=== PATIENT | male | born 1940 | race Caucasian/White ===

== ENCOUNTER 2017-04-24 13:59 | Emergency (ER) | payer MEDICARE, OTHER ==
[2017-04-24 14:03] VITALS: BP 150/84
--- NOTE | 2017-04-24 14:14 | EDM.PDOC ---
ED HPI GENERAL MEDICAL PROBLEM - General Chief Complaint: General Stated Complaint: "harder to breath with having recent blood clots" Time Seen by Provider: 04/24/17 14:01 Source of Information: Reports: Patient History Limitations: Reports: No Limitations - History of Present Illness INITIAL COMMENTS - FREE TEXT/NARRATIVE: This patient is a 76 year old male that presents to the ER. Patient reports that this morning he was sitting on the couch and started having right sided chest pain with shortness of breath. He reports that taking big deep breaths does make the pain worse. The patient reports that he was diagnosed recently with a blood clot to the E, and has been taking aspirin for this. Patient reports that since being here in the ER that his dyspnea has improved some. Patient denies avalos, dizziness, n, v, d, f, cough, congestion, drainage, abd pain , urinary/bowel changes, back pain, palpitations, injury. Patent is fully alert and oriented, he is conversing in full and complete sentences without any difficulty. Patient has equal chest rise. No flail chest, no splinting. Onset: Today Onset Date: 04/24/17 Onset Time: 10:30 Duration: Improving Location: Reports: Chest Front/Back Body Image: 1 - pain. Quality: Reports: Ache Severity: Mild Improves with: Reports: None Worsens with: Reports: Breathing Associated Symptoms: Reports: Chest Pain, Shortness of Breath. Denies: Confusion, Cough, Diaphoresis, Fever/Chills, Headaches, Loss of Appetite, Nausea /Vomiting, Rash, Seizure, Syncope, Weakness Right Chest Pain Score (Numeric/FACES): 4 - Related Data Allergies Allergy/AdvReac Type Severity Reaction Status Date / Time No Known Allergies Allergy Verified 04/24/17 14:30 Home Meds: Home Meds Finasteride [Finasteride] 5 mg PO BEDTIME 05/24/15 [History] Multivitamin [Multivitamins] 1 each PO DAILY 05/24/15 [History] Omeprazole [Omeprazole] 20 mg PO BEDTIME 05/24/15 [History] Simvastatin [Simvastatin] 10 mg PO BEDTIME 05/24/15 [History] Tamsulosin [Flomax] 0.4 mg PO BID 05/24/15 [History] Travoprost [Travatan Z 0.004% Ophth Soln] 1 drop EYEBOTH BEDTIME 01/01/16 [ History] Aspirin [Ecotrin] 325 mg PO BEDTIME 04/24/17 [History] Metoprolol Succinate [Toprol XL] 25 mg PO DAILY 04/24/17 [History] Timolol Maleate [Timoptic 0.25% Ophth Soln] 1 drop EYEBOTH BID 04/24/17 [History ] amLODIPine [Norvasc] 5 mg PO DAILY 04/24/17 [History] Past Medical History Other Genitourinary History: BPH Other Neuro History: FELL ON THE ICE SEVERAL YEARS AGO AND SUSTAINED A HEAD INJURY; WAS MONITORED OVERNIGHT. NO BLEED - Past Surgical History Other Cardiovascular Surgeries/Procedures: STENT PUT IN ABOUT 10 YEARS AGO Social & Family History - Tobacco Use Smoking Status *Q: Never Smoker ED ROS GENERAL - Review of Systems Review Of Systems: See Below Constitutional: Reports: No Symptoms HEENT: Reports: No Symptoms Respiratory: Reports: Shortness of Breath Cardiovascular: Reports: Chest Pain, Dyspnea on Exertion Endocrine: Reports: No Symptoms GI/Abdominal: Reports: No Symptoms : Reports: No Symptoms Musculoskeletal: Reports: No Symptoms Skin: Reports: No Symptoms Neurological: Reports: No Symptoms Psychiatric: Reports: No Symptoms Hematologic/Lymphatic: Reports: No Symptoms Immunologic: Reports: No Symptoms ED EXAM, GENERAL - Physical Exam Exam: See Below Exam Limited By: No Limitations General Appearance: Alert, WD/WN, No Apparent Distress Eye Exam: Bilateral Eye: Normal Inspection, PERRL Ears: Normal External Exam, Normal Canal, Hearing Grossly Normal, Normal TMs, Other (hearing aids removed for exam. Patient reinserted. ) Ear Exam: Bilateral Ear: Auricle Normal, Canal Normal, TM normal Nose: Normal Inspection, Normal Mucosa, No Blood Throat/Mouth: Normal Inspection, Normal Lips, Normal Teeth, Normal Gums, Normal Oropharynx, Normal Voice, No Airway Compromise Head: Atraumatic, Normocephalic Neck: Normal Inspection, Supple, Non-Tender, Full Range of Motion Respiratory/Chest: No Respiratory Distress, Lungs Clear, Normal Breath Sounds, No Accessory Muscle Use, Chest Non-Tender. No: Respiratory Distress, Decreased Breath Sounds, Crackles, Rales, Rhonchi, Wheezing, Stridor, Pleural Rub, Accessory Muscle Use, Retractions, Splinting, Prolonged Expiration Cardiovascular: Normal Peripheral Pulses, Regular Rate, Rhythm, No Edema, No Gallop, No JVD, No Murmur, No Rub Peripheral Pulses: 2+: Radial (L), Radial (R), Posterior Tibial (L), Posterior Tibial (R) GI/Abdominal: Soft, Non-Tender Back Exam: Normal Inspection, Full Range of Motion. No: CVA Tenderness (L), CVA Tenderness (R) Extremities: Normal Inspection, Normal Range of Motion, Non-Tender, No Pedal Edema, Normal Capillary Refill Neurological: Alert, Oriented, Normal Cognition, Normal Gait, No Motor/Sensory Deficits Psychiatric: Normal Affect, Normal Mood Skin Exam: Warm, Dry, Intact, Normal Color, No Rash Lymphatic: No Adenopathy EKG INTERPRETATION EKG Date: 04/24/17 Time: 14:12 Rhythm: NSR Rate (Beats/Min): 64 ST-T: Normal Comparison: NA - No Prior EKG Course - Vital Signs Last Recorded V/S: Last Vital Signs Temp 99.4 F 04/24/17 14:00 Pulse 75 04/24/17 14:00 Resp 16 04/24/17 14:00 BP 150/84 H 04/24/17 14:00 Pulse Ox 94 L 04/24/17 14:00 - Orders/Labs/Meds Orders: Active Orders 24 hr Category Date Time Status Ang Chest [CT] Stat Exams 04/24/17 14:37 Taken Chest 2V [CR] Stat Exams 04/24/17 14:05 Taken Sodium Chloride 0.9% [Normal Saline] 500 ml Med 04/24/17 14:45 Active IV .BOLUS Medication Orders Sodium Chloride (Normal Saline) 500 mls @ 500 mls/hr IV .BOLUS ALHAJI Last Infusion: 04/24/17 16:21 Dose: 999 mls/hr Admin: 04/24/17 16:20 Dose: 500 mls/hr Labs: Laboratory Tests 04/24/17 04/24/17 04/24/17 Range/Units 14:10 14:10 14:10 WBC 7.8 (5.0-10.0) 10^3/uL RBC 4.64 (4.50-6.00) 10^6/uL Hgb 14.5 (14.0-18.0) g/dL Hct 43.5 (40.0-54.0) % MCV 93.8 (82.0-94.0) fL MCH 31.3 (27.0-32.0) pg MCHC 33.3 (33.0-38.0) g/dL RDW Coeff of Fiona 12.5 (11.0-15.0) % Plt Count 180 (150-400) 10^3/uL Neut % (Auto) 70.5 (35-85) % Lymph % (Auto) 15.2 (10-55) % Worth % (Auto) 11.2 (0-16) % Eos % (Auto) 2.6 (0-5) % Baso % (Auto) 0.5 (0-3) % Neut # (Auto) 5.46 (1.80-7.00) 10^3/uL Lymph # (Auto) 1.18 (1.00-4.80) 10^3/uL Worth # (Auto) 0.87 H (0.00-0.80) 10^3/uL Eos # (Auto) 0.20 (0.00-0.45) 10^3/uL Baso # (Auto) 0.04 10^3/uL PT 10.7 (9.7-12.3) SEC INR 0.99 (0.92-1.18) APTT 27.5 (24.5-30.9) SEC Sodium 142 (136-145) mEq/L Potassium 4.8 (3.5-5.0) mEq/L Chloride 106 (98-106) mEq/L Carbon Dioxide 31 (21-32) mmol/L BUN 20 H (7-18) mg/dL Creatinine 1.0 (0.7-1.3) mg/dL Est Cr Clr Drug Dosing 67.90 mL/min Estimated GFR (MDRD) > 60 (>=60) mL/min Glucose 106 H (75-99) mg/dL Calcium 8.6 (8.4-10.1) mg/dL Total Bilirubin 0.4 (0.0-1.0) mg/dL AST 22 (15-37) U/L ALT 18 (12-78) U/L Alkaline Phosphatase 115 (46-116) U/L Troponin I < 0.017 (0.00-0.06) ng/mL C-Reactive Protein 1.1 H (0.2-0.8) mg/dL Total Protein 7.0 (6.4-8.2) g/dL Albumin 3.5 (3.4-5.0) g/dL Meds: Medications Generic Name Dose Route Start Last Admin Trade Name Freq PRN Reason Stop Dose Admin Sodium Chloride 500 mls @ 500 mls/hr 04/24/17 14:45 04/24/17 16:21 Normal Saline IV 999 mls/hr .BOLUS ALHAJI Infusion Discontinued Medications Generic Name Dose Route Start Last Admin Trade Name Freq PRN Reason Stop Dose Admin Enoxaparin Sodium 155 mg 04/24/17 16:13 04/24/17 16:30 Lovenox SUBCUT 04/24/17 16:14 155 mg NOW STA Administration Iopamidol 100 ml 04/24/17 14:46 04/24/17 15:28 [id number] (76%) IVPUSH 04/24/17 14:47 100 ml ONETIME ONE Administration - Radiology Interpretation Free Text/Narrative:: CT Angio Chest: Discussed with radiologist: Several bilateral PEs, some appears chronic, subactue, acute. RLL PE with pulmonary infarct verses hemorrhage. CT Results Date: 04/24/17 CT Results Time: 15:50 - Re-Assessments/Exams Free Text/Narrative Re-Assessment/Exam: 04/24/17 16:20 I discussed this patient and results with Dr. Pereira the hospitalist at [facility]. The patient oxygen saturation on RA is 94%, vitals stable. Patient does not appear in acute distress. Dr. Pereira reports that this patient can go home outpatient treatment. He reports to give the patient 1.5mg/kg of Lovenox injection, then prescribe Eliquis. He reports to have the patient return if increase in pain, increase in dyspnea, or oxygen saturation drop. I have educated the patient about his test, condition, discussion with hospitalist, and plan. He agrees with this plan. I have educated the patient on the dangers of Eliquis and Lovenox. He understands all the risks. He understands when to return to the ER for bleeding risks as well. Departure - Departure Time of Disposition: 16:23 Disposition: Home, Self-Care 01 Condition: Fair Clinical Impression: PE, Pulmonary embolism - Discharge Information Instructions: Pulmonary Embolism Referrals: Derrick Patterson MD [Primary Care Provider] - Forms: ED Department Discharge Additional Instructions: Followup with your primary care provider in 1-2 days Return to the ER for worsening of condition or any emergent concerns such as increase in shortness of breath, increase in chest pain, or any other concerns. Return to the ER for bleeding as well such as blood in bowels, vomiting blood. No physical activity or contact activity: You are at bleeding risk. Eliquis 5mg 2 pills twice a day for 7 days, then 1 pill twice a day continued # 70 no refill - My Orders Last 24 Hours: My Active Orders 04/24/17 14:05 Chest 2V [CR] Stat 04/24/17 14:37 Ang Chest [CT] Stat 04/24/17 14:45 Sodium Chloride 0.9% [Normal Saline] 500 ml IV .BOLUS - Assessment/Plan Last 24 Hours: My Active Orders 04/24/17 14:05 Chest 2V [CR] Stat 04/24/17 14:37 Ang Chest [CT] Stat 04/24/17 14:45 Sodium Chloride 0.9% [Normal Saline] 500 ml IV .BOLUS Plan: PLEASE SEE RN NOTE FOR PFSH.
[2017-04-24 14:30] LABS: CHLORIDE,CL 106 mEq/L (98-106); SODIUM,NA 142 mEq/L (136-145)
[2017-04-24] MEDS ORDERED: Sodium Chloride 0.9% 500 ML IV SCH (14:45)
[2017-04-24] MEDS ORDERED: Iopamidol 755 Mg/ML 100 ML Bottle IVPUSH ONE (14:46)
[2017-04-24] MEDS ORDERED: Enoxaparin 100 MG/1 ML Syringe SUBCUT STA (16:13)
[2017-04-25] MEDS ORDERED: Non-Formulary Medication 1 Each (Amlodipine [Norvasc] 5 MG) PO SCH (08:15)
[2017-04-25] MEDS ORDERED: Metoprolol Succinate 25 MG Tab.ER PO SCH (08:15)
[2017-04-25] MEDS ORDERED: Tamsulosin 0.4 MG Cap.ER PO SCH (08:15)
[2017-04-25] MEDS ORDERED: TIMOLOL MALEATE EYEBOTH SCH (08:15)
[2017-04-25] MEDS ORDERED: Enoxaparin 100 MG/1 ML Syringe SUBCUT ONE (08:20)
[2017-04-25] MEDS ORDERED: Aspirin 325 MG Tab.EC PO SCH (20:00)
[2017-04-25] MEDS ORDERED: Non-Formulary Medication 1 Each (Travoprost [Travatan Z 0.004% Ophth Soln] 1 DROP) EYEBOTH SCH (20:00)
[2017-04-25] MEDS ORDERED: Finasteride 5 MG Tab PO SCH (20:00)
[2017-04-25] MEDS ORDERED: Simvastatin 10 MG Tab PO SCH (20:00)
[2017-04-25] MEDS ORDERED: Non-Formulary Medication 1 Each (Omeprazole [Omeprazole] 20 MG) PO SCH (20:00)
== END 2017-04-24 16:55 | disposition home or self-care (01) ==
LOC: CC.ED 13:59
DX: I26.99 Other pulmonary embolism without acute cor pulmonale (principal); Z79.899 Other long term (current) drug therapy; Z79.82 Long term (current) use of aspirin; Z95.5 Presence of coronary angioplasty implant and graft
CPT/HCPCS: 36415; 71020; 71275; 80053; 84484; 85025; 85610; 85730; 86140; 93005; 93010; 96360; 96372; 99284; 99285; J1650; J7040; Q9967; 96365

== ENCOUNTER 2017-04-25 03:30 | Inpatient (IN) | payer MEDICARE, OTHER ==
--- NOTE | 2017-04-25 04:35 | EDM.PDOC ---
ED HPI GENERAL MEDICAL PROBLEM - General Chief Complaint: General Stated Complaint: pain with breating d/t blood clots Time Seen by Provider: 04/25/17 04:05 Source of Information: Reports: Patient, Family History Limitations: Reports: No Limitations - History of Present Illness INITIAL COMMENTS - FREE TEXT/NARRATIVE: This patient is a 76 year old male that presents to the ER via EMS. The patient was seen in the ER yesterday and diagnosed with several PEs. The patient was discharged hemodynamically stable. The patient reports that he got home and his daughter was with him. The patient reports that he continues to have pain with inspiration of the right anterior chest. The patient reports that his daughter was worried, so she encouraged him to call and ambulance to return for admission. The patient reports that he is having the same amount of pain to the right chest with inspiration as yesterday, he feels the same shortness of breath. He denies avalos, dizziness, n, v, d, f, abd pain, urinary/bowel changes. Onset Date: 04/24/17 Onset Time: 10:30 Location: Reports: Chest Quality: Reports: Ache Severity: Mild Improves with: Reports: None Worsens with: Reports: Breathing (Inspiration) Associated Symptoms: Reports: Chest Pain, Shortness of Breath. Denies: Confusion, Cough, cough w sputum, Diaphoresis, Fever/Chills, Headaches, Loss of Appetite, Malaise, Nausea/Vomiting, Rash, Seizure, Syncope, Weakness Treatments BUDGET DIRECTOR: Reports: EKG Right Lower Chest Pain Score (Numeric/FACES): 4 - Related Data Allergies Allergy/AdvReac Type Severity Reaction Status Date / Time No Known Allergies Allergy Verified 04/25/17 03:49 Home Meds: Home Meds Finasteride [Finasteride] 5 mg PO BEDTIME 05/24/15 [History] Multivitamin [Multivitamins] 1 each PO DAILY 05/24/15 [History] Omeprazole [Omeprazole] 20 mg PO BEDTIME 05/24/15 [History] Simvastatin [Simvastatin] 10 mg PO BEDTIME 05/24/15 [History] Tamsulosin [Flomax] 0.4 mg PO BID 05/24/15 [History] Travoprost [Travatan Z 0.004% Ophth Soln] 1 drop EYEBOTH BEDTIME 01/01/16 [ History] Aspirin [Ecotrin] 325 mg PO BEDTIME 04/24/17 [History] Metoprolol Succinate [Toprol XL] 25 mg PO DAILY 04/24/17 [History] Timolol Maleate [Timoptic 0.25% Ophth Soln] 1 drop EYEBOTH BID 04/24/17 [History ] amLODIPine [Norvasc] 5 mg PO DAILY 04/24/17 [History] Past Medical History HEENT History: Reports: Glaucoma Cardiovascular History: Reports: Blood Clots/VTE/DVT, Hypertension, Stents Genitourinary History: Reports: BPH, UTI, Recurrent Other Genitourinary History: BPH Musculoskeletal History: Reports: Fracture Neurological History: Reports: Other (See Below) Other Neuro History: FELL ON THE ICE SEVERAL YEARS AGO AND SUSTAINED A HEAD INJURY; WAS MONITORED OVERNIGHT. NO BLEED Dermatologic History: Reports: Benign Melanoma - Past Surgical History Other Cardiovascular Surgeries/Procedures: STENT PUT IN ABOUT 10 YEARS AGO GI Surgical History: Reports: Appendectomy, Cholecystectomy, Colonoscopy Social & Family History - Family History Family Medical History: Noncontributory - Tobacco Use Smoking Status *Q: Never Smoker Used Tobacco, but Quit: Yes Month Tobacco Last Used: 50yrs ago - Caffeine Use Caffeine Use: Reports: None - Recreational Drug Use Recreational Drug Use: No ED ROS GENERAL - Review of Systems Review Of Systems: See Below Constitutional: Reports: No Symptoms HEENT: Reports: No Symptoms Respiratory: Reports: Shortness of Breath, Pleuritic Chest Pain (Right anterior chest). Denies: Wheezing, Cough, Sputum Cardiovascular: Reports: No Symptoms Endocrine: Reports: No Symptoms GI/Abdominal: Reports: No Symptoms : Reports: No Symptoms Musculoskeletal: Reports: No Symptoms Skin: Reports: No Symptoms Neurological: Reports: No Symptoms Psychiatric: Reports: No Symptoms Hematologic/Lymphatic: Reports: No Symptoms Immunologic: Reports: No Symptoms ED EXAM, GENERAL - Physical Exam Exam: See Below Exam Limited By: No Limitations General Appearance: Alert, WD/WN, No Apparent Distress Eye Exam: Bilateral Eye: Normal Inspection, PERRL Ears: Normal External Exam, Normal Canal, Hearing Grossly Normal, Normal TMs Ear Exam: Bilateral Ear: Auricle Normal, Canal Normal, TM normal Nose: Normal Inspection, Normal Mucosa, No Blood Throat/Mouth: Normal Inspection, Normal Lips, Normal Teeth, Normal Gums, Normal Oropharynx, Normal Voice, No Airway Compromise Head: Atraumatic, Normocephalic Neck: Normal Inspection, Supple, Non-Tender, Full Range of Motion Respiratory/Chest: No Respiratory Distress, Lungs Clear, Normal Breath Sounds, No Accessory Muscle Use, Chest Non-Tender. No: Respiratory Distress, Decreased Breath Sounds, Crackles, Rales, Rhonchi, Wheezing, Stridor, Pleural Rub, Accessory Muscle Use, Retractions, Splinting, Prolonged Expiration Cardiovascular: Normal Peripheral Pulses, Regular Rate, Rhythm, No Edema, No Gallop, No JVD, No Murmur, No Rub Peripheral Pulses: 2+: Radial (L), Radial (R), Posterior Tibial (L), Posterior Tibial (R), Dorsalis Pedis (L), Dorsalis Pedis (R) GI/Abdominal: Soft, Non-Tender Back Exam: Normal Inspection, Full Range of Motion Extremities: Normal Inspection, Normal Range of Motion, Non-Tender, No Pedal Edema, Normal Capillary Refill Neurological: Alert, Oriented, Normal Cognition, No Motor/Sensory Deficits Psychiatric: Normal Affect, Normal Mood Skin Exam: Warm, Dry, Intact, Normal Color, No Rash Lymphatic: No Adenopathy Course - Vital Signs Last Recorded V/S: Last Vital Signs Temp 99.6 F 04/25/17 04:47 Pulse 70 04/25/17 04:47 Resp 16 04/25/17 04:47 BP 156/94 H 04/25/17 04:47 Pulse Ox 94 L 04/25/17 04:47 - Re-Assessments/Exams Free Text/Narrative Re-Assessment/Exam: 04/25/17 04:51 The patient oxygen saturation is 96% on RA. The patient does not appear in any acute distress. I have spent over 20 minutes with this patient and his daughter at bedside discussing and educating the diagnosis, treatment, risks vs benefits of admission, risks vs benefits of different medication treatments. The recommended treatment for this patient I initially prescribed was Lovenox and Eliquis at previous discharge from ER. I have explained risks and benefits of Warfarin verses Eliquis with this patient and daughter. The daughter reports she would like the patient to have Eliquis. I have educated that I currently do not have Eliquis available, but he did get 1.5mg/kg Lovenox injection on . The patient and daughter have requested admission. I will honor this request. The patient PCP will see this patient this morning and will again discuss with the patient and daughter available options. I did explain to the daughter they can discuss possible options for blood thinner. So, at this time I will not order this. Departure - Departure Time of Disposition: 04:34 Disposition: Admitted As Inpatient 65 Condition: Fair Clinical Impression: PE, Pulmonary embolism Dyspnea Qualifiers: Dyspnea type: shortness of breath Qualified Code(s): R06.02 - Shortness of breath Chest pain Qualifiers: Chest pain type: chest pain on breathing Qualified Code(s): R07.1 - Chest pain on breathing - Discharge Information - Assessment/Plan Plan: PLEASE SEE RN NOTE FOR PFSH. PLEASE USE ER H&P ADMIT H&P.
[2017-04-25] MEDS ORDERED: Enoxaparin 40 MG/0.4 ML Syringe SUBCUT SCH ×2 (05:08→16:00)
[2017-04-25] MEDS ORDERED: Ondansetron 4 MG/2 ML SDV IV PRN (05:08)
[2017-04-25] MEDS ORDERED: Acetaminophen 325 MG Tab PO PRN (05:08)
[2017-04-25] MEDS ORDERED: Sodium Chloride 0.9% 10 ML Syringe FLUSH PRN (05:08)
[2017-04-25] MEDS: Acetaminophen/HYDROcodone 325-5 MG Tab PO PRN ×2 (05:51→14:43)
[2017-04-25] MEDS: Metoprolol Succinate 25 MG Tab.ER PO SCH (07:29)
[2017-04-25] MEDS: amLODIPine 2.5 MG Tab PO SCH (07:29)
[2017-04-25] MEDS: Tamsulosin 0.4 MG Cap.ER PO SCH ×2 (07:30→19:54)
[2017-04-25 07:35] LABS: CHLORIDE,CL 105 mEq/L (98-106); SODIUM,NA 141 mEq/L (136-145)
[2017-04-25] MEDS: TIMOLOL MALEATE EYEBOTH SCH ×2 (08:42→19:47)
[2017-04-25] MEDS: Enoxaparin 100 MG/1 ML Syringe SUBCUT SCH ×2 (08:42→19:52)
[2017-04-25] MEDS: Morphine 2 MG/ML Syringe IVPUSH PRN ×2 (09:07→12:53)
[2017-04-25] MEDS: Ibuprofen 200 MG Tab PO PRN (12:52)
[2017-04-25] MEDS: Simvastatin 10 MG Tab PO SCH (19:53)
[2017-04-25] MEDS: Pantoprazole 40 MG Tab.CR PO SCH (19:53)
[2017-04-25] MEDS: Finasteride 5 MG Tab PO SCH (19:54)
[2017-04-25] MEDS: Latanoprost 0.005% Ophth Soln 2.5 ML Bottle EYEBOTH SCH (19:56)
--- NOTE | 2017-04-25 20:07 | PCM.PN ---
- General Info Date of Service: 04/25/17 Admission Dx/Problem (Free Text): Pulmonary Emboli Functional Status: Reports: tolerating diet, ambulating. Denies: pain controlled - Review of Systems General: Denies: Fever, Weakness, Fatigue HEENT: Reports: no symptoms Pulmonary: Reports: pleuritic chest pain. Denies: cough, hemoptysis Cardiovascular: Denies: Chest Pain, Edema, Lightheadedness Gastrointestinal: Reports: No symptoms Genitourinary: Reports: no symptoms Musculoskeletal: Reports: no symptoms Skin: Reports: no symptoms Neurological: Reports: No Symptoms - Patient Data Vitals - most recent: Last Vital Signs Temp 99.8 F 04/25/17 16:00 Pulse 71 04/25/17 16:00 Resp 24 H 04/25/17 16:00 BP 141/79 H 04/25/17 16:00 Pulse Ox 93 L 04/25/17 16:00 Weight - most recent: 218 lb 9.6 oz Lab Results last 24 hrs: Laboratory Results - last 24 hr 04/25/17 04/25/17 04/25/17 Range/Units 07:21 07:21 07:21 WBC 7.7 (5.0-10.0) 10^3/uL RBC 4.44 L (4.50-6.00) 10^6/uL Hgb 13.8 L (14.0-18.0) g/dL Hct 41.5 (40.0-54.0) % MCV 93.5 (82.0-94.0) fL MCH 31.1 (27.0-32.0) pg MCHC 33.3 (33.0-38.0) g/dL RDW Coeff of Fiona 12.3 (11.0-15.0) % Plt Count 170 (150-400) 10^3/uL Neut % (Auto) 72.4 (35-85) % Lymph % (Auto) 15.0 (10-55) % Donley % (Auto) 11.2 (0-16) % Eos % (Auto) 1.0 (0-5) % Baso % (Auto) 0.4 (0-3) % Neut # (Auto) 5.55 (1.80-7.00) 10^3/uL Lymph # (Auto) 1.15 (1.00-4.80) 10^3/uL Donley # (Auto) 0.86 H (0.00-0.80) 10^3/uL Eos # (Auto) 0.08 (0.00-0.45) 10^3/uL Baso # (Auto) 0.03 10^3/uL PT 11.4 (9.7-12.3) SEC INR 1.05 (0.92-1.18) Sodium 141 (136-145) mEq/L Potassium 4.0 (3.5-5.0) mEq/L Chloride 105 (98-106) mEq/L Carbon Dioxide 27 (21-32) mmol/L BUN 16 (7-18) mg/dL Creatinine 0.8 (0.7-1.3) mg/dL Est Cr Clr Drug Dosing 84.88 mL/min Estimated GFR (MDRD) > 60 (>=60) mL/min Glucose 92 (75-99) mg/dL Calcium 8.3 L (8.4-10.1) mg/dL C-Reactive Protein 2.9 H (0.2-0.8) mg/dL [id number] Pept (0-1000) pg/nL 04/25/17 Range/Units 08:30 WBC (5.0-10.0) 10^3/uL RBC (4.50-6.00) 10^6/uL Hgb (14.0-18.0) g/dL Hct (40.0-54.0) % MCV (82.0-94.0) fL MCH (27.0-32.0) pg MCHC (33.0-38.0) g/dL RDW Coeff of Fiona (11.0-15.0) % Plt Count (150-400) 10^3/uL Neut % (Auto) (35-85) % Lymph % (Auto) (10-55) % Donley % (Auto) (0-16) % Eos % (Auto) (0-5) % Baso % (Auto) (0-3) % Neut # (Auto) (1.80-7.00) 10^3/uL Lymph # (Auto) (1.00-4.80) 10^3/uL Donley # (Auto) (0.00-0.80) 10^3/uL Eos # (Auto) (0.00-0.45) 10^3/uL Baso # (Auto) 10^3/uL PT (9.7-12.3) SEC INR (0.92-1.18) Sodium (136-145) mEq/L Potassium (3.5-5.0) mEq/L Chloride (98-106) mEq/L Carbon Dioxide (21-32) mmol/L BUN (7-18) mg/dL Creatinine (0.7-1.3) mg/dL Est Cr Clr Drug Dosing mL/min Estimated GFR (MDRD) (>=60) mL/min Glucose (75-99) mg/dL Calcium (8.4-10.1) mg/dL C-Reactive Protein (0.2-0.8) mg/dL [id number] Pept 286 (0-1000) pg/nL Med Orders - Current: Current Medications Acetaminophen (Tylenol) 650 mg PO Q4H PRN PRN Reason: Pain (Mild 1-3)/fever Hydrocodone Bitart/Acetaminophen ([place] 325-5 Mg) 2 tab PO Q4H PRN PRN Reason: Pain (moderate 4-6) Last Admin: 04/25/17 14:43 Dose: 2 tab Amlodipine Besylate (Norvasc) 5 mg PO DAILY [facility] Last Admin: 04/25/17 07:29 Dose: 5 mg Enoxaparin Sodium (Lovenox) 100 mg SUBCUT Q12H [facility] Last Admin: 04/25/17 08:42 Dose: 100 mg Finasteride (Proscar) 5 mg PO BEDTIME [facility] Ibuprofen (Motrin) 600 mg PO Q6H PRN PRN Reason: Pain (mild 1-3) Last Admin: 04/25/17 12:52 Dose: 600 mg Latanoprost (Xalatan 0.005% Ophth Soln) 0 ml EYEBOTH BEDTIME [facility] Metoprolol Succinate (Toprol Xl) 25 mg PO DAILY [facility] Last Admin: 04/25/17 07:29 Dose: 25 mg Morphine Sulfate (Morphine) 2 mg IVPUSH Q2H PRN PRN Reason: Pain (severe 7-10) Last Admin: 04/25/17 12:53 Dose: 2 mg Ptom (Timolol Maleate [Timoptic 0. 25% Ophth Soln] 1 Drop) 1 drop EYEBOTH BID [facility] Last Admin: 04/25/17 19:47 Dose: 1 drop Ondansetron HCl (Zofran) 4 mg IV Q6H PRN PRN Reason: Nausea/Vomiting Pantoprazole Sodium (Protonix) 40 mg PO BEDTIME ALHAJI Simvastatin (Zocor) 10 mg PO BEDTIME [facility] Sodium Chloride (Saline Flush) 10 ml FLUSH ASDIRECTED PRN PRN Reason: Keep Vein Open Tamsulosin HCl (Flomax) 0.4 mg PO BID [facility] Last Admin: 04/25/17 07:30 Dose: 0.4 mg Discontinued Medications Enoxaparin Sodium (Lovenox) 40 mg SUBCUT Q24H [facility] Last Admin: 04/25/17 06:06 Dose: Not Given - Exam Quality Assessment: No: supplemental oxygen General: alert, oriented HEENT: Mucous membr. moist/pink Neck: supple Lungs: Decreased breath sounds (RLL) Cardiovascular: Regular Rate, Regular Rhythm Abdomen: bowel sounds present, soft, no tenderness Extremities: no edema Skin: warm, dry Neurological: no new focal deficit - Problem List & Annotations (1) PE, Pulmonary embolism SNOMED Code(s): 86437464 Code(s): I26.99 - OTHER PULMONARY EMBOLISM WITHOUT ACUTE COR PULMONALE Status: Acute Current Visit: Yes - Problem List Review Problem List Initiated/Reviewed/Updated: Yes - My Orders Last 24 Hours: My Active Orders 04/25/17 08:00 Enoxaparin [Lovenox] 100 mg SUBCUT Q12H 04/25/17 09:33 FACTOR 5 LEIDEN MUTATION [REF] Stat PROTEIN C AND S ACTIVITY [REF] Stat 04/25/17 11:32 VL Duplex Lwr Ext Veins Ltd Rt [US] Routine 04/25/17 14:00 Echo Comp wo Cont [US] Routine - Assessment Assessment:: Pulmonary Emboli - Plan Plan:: Patient does continue to have pleuritic chest pain. States gets only 2 hours or so of relief of pain with oral meds. Denies shortness of breath. Oxygen sats has been stable on room air. Denies hemoptysis. Patient had venous ultrasound done on the due to pain in his right calf. At that time, no evidence of DVT was noted. Now has developed large PE. No known history of blood clotting disorder but relates mother did of consequences of a clot. No history of cancer. Will proceed today with thrombophilia testing. Also proceed with a repeat ultrasound of his right leg. Proceed with an echocardiogram. Abdominal CT due to his concerns with bloating and look for source of clot. Patient and daughter in agreement with this plan.
[2017-04-26] MEDS ORDERED: Iopamidol 612 MG/ML 100 ML Bottle IVPUSH ONE (07:15)
[2017-04-26 07:48] LABS: CHLORIDE,CL 107 mEq/L (98-106); SODIUM,NA 141 mEq/L (136-145)
[2017-04-26] MEDS: Enoxaparin 100 MG/1 ML Syringe SUBCUT SCH ×2 (08:21→20:04)
[2017-04-26] MEDS: Morphine 2 MG/ML Syringe IVPUSH PRN (08:21)
[2017-04-26] MEDS: amLODIPine 2.5 MG Tab PO SCH (10:03)
[2017-04-26] MEDS: TIMOLOL MALEATE EYEBOTH SCH ×2 (10:04→20:00)
[2017-04-26] MEDS: Metoprolol Succinate 25 MG Tab.ER PO SCH (10:04)
[2017-04-26] MEDS: Tamsulosin 0.4 MG Cap.ER PO SCH ×2 (10:04→20:05)
--- NOTE | 2017-04-26 10:42 | PCM.PN ---
- General Info Date of Service: 04/26/17 Admission Dx/Problem (Free Text): Pulmonary Emboli Functional Status: Reports: tolerating diet. Denies: pain controlled, ambulating - Review of Systems General: Denies: Fever, Weakness, Fatigue HEENT: Reports: no symptoms Pulmonary: Reports: pleuritic chest pain. Denies: shortness of breath, cough Cardiovascular: Denies: Chest Pain, Edema, Lightheadedness Gastrointestinal: Reports: Other (bloating). Denies: Abdominal pain, Nausea, Vomiting Genitourinary: Reports: no symptoms Musculoskeletal: Reports: no symptoms Skin: Reports: no symptoms Neurological: Reports: No Symptoms Psychiatric: Reports: no symptoms - Patient Data Vitals - most recent: Last Vital Signs Temp 97.5 F 04/26/17 07:42 Pulse 70 04/26/17 10:04 Resp 18 04/26/17 07:42 BP 184/95 H 04/26/17 10:04 Pulse Ox 95 04/26/17 07:42 Weight - most recent: 218 lb 9.6 oz Lab Results last 24 hrs: Laboratory Results - last 24 hr 04/25/17 04/26/17 04/26/17 Range/Units 08:30 07:05 07:05 WBC 6.2 (5.0-10.0) 10^3/uL RBC 4.56 (4.50-6.00) 10^6/uL Hgb 14.3 (14.0-18.0) g/dL Hct 42.9 (40.0-54.0) % MCV 94.1 H (82.0-94.0) fL MCH 31.4 (27.0-32.0) pg MCHC 33.3 (33.0-38.0) g/dL RDW Coeff of Fiona 12.3 (11.0-15.0) % Plt Count 148 L (150-400) 10^3/uL Neut % (Auto) 67.2 (35-85) % Lymph % (Auto) 17.7 (10-55) % [place] % (Auto) 12.2 (0-16) % Eos % (Auto) 2.4 (0-5) % Baso % (Auto) 0.5 (0-3) % Neut # (Auto) 4.13 (1.80-7.00) 10^3/uL Lymph # (Auto) 1.09 (1.00-4.80) 10^3/uL [place] # (Auto) 0.75 (0.00-0.80) 10^3/uL Eos # (Auto) 0.15 (0.00-0.45) 10^3/uL Baso # (Auto) 0.03 10^3/uL PT 11.3 (9.7-12.3) SEC INR 1.04 (0.92-1.18) Sodium (136-145) mEq/L Potassium (3.5-5.0) mEq/L Chloride (98-106) mEq/L Carbon Dioxide (21-32) mmol/L BUN (7-18) mg/dL Creatinine (0.7-1.3) mg/dL Est Cr Clr Drug Dosing mL/min Estimated GFR (MDRD) (>=60) mL/min Glucose (75-99) mg/dL Calcium (8.4-10.1) mg/dL C-Reactive Protein (0.2-0.8) mg/dL Tzc-[id number] Pept 286 (0-1000) pg/nL 04/26/17 Range/Units 07:05 WBC (5.0-10.0) 10^3/uL RBC (4.50-6.00) 10^6/uL Hgb (14.0-18.0) g/dL Hct (40.0-54.0) % MCV (82.0-94.0) fL MCH (27.0-32.0) pg MCHC (33.0-38.0) g/dL RDW Coeff of Fiona (11.0-15.0) % Plt Count (150-400) 10^3/uL Neut % (Auto) (35-85) % Lymph % (Auto) (10-55) % [place] % (Auto) (0-16) % Eos % (Auto) (0-5) % Baso % (Auto) (0-3) % Neut # (Auto) (1.80-7.00) 10^3/uL Lymph # (Auto) (1.00-4.80) 10^3/uL [place] # (Auto) (0.00-0.80) 10^3/uL Eos # (Auto) (0.00-0.45) 10^3/uL Baso # (Auto) 10^3/uL PT (9.7-12.3) SEC INR (0.92-1.18) Sodium 141 (136-145) mEq/L Potassium 4.5 (3.5-5.0) mEq/L Chloride 107 H (98-106) mEq/L Carbon Dioxide 26 (21-32) mmol/L BUN 22 H (7-18) mg/dL Creatinine 0.8 (0.7-1.3) mg/dL Est Cr Clr Drug Dosing 84.88 mL/min Estimated GFR (MDRD) > 60 (>=60) mL/min Glucose 98 (75-99) mg/dL Calcium 8.5 (8.4-10.1) mg/dL C-Reactive Protein 6.7 H (0.2-0.8) mg/dL Kfr-K-Mtanbvhlkut Pept 144 (0-1000) pg/nL Med Orders - Current: Current Medications Acetaminophen (Tylenol) 650 mg PO Q4H PRN PRN Reason: Pain (Mild 1-3)/fever Hydrocodone Bitart/Acetaminophen ([place] 325-5 Mg) 2 tab PO Q4H PRN PRN Reason: Pain (moderate 4-6) Last Admin: 04/25/17 14:43 Dose: 2 tab Amlodipine Besylate (Norvasc) 5 mg PO DAILY [facility] Last Admin: 04/26/17 10:03 Dose: 5 mg Enoxaparin Sodium (Lovenox) 100 mg SUBCUT Q12H [facility] Last Admin: 04/26/17 08:21 Dose: 100 mg Finasteride (Proscar) 5 mg PO BEDTIME [facility] Last Admin: 04/25/17 19:54 Dose: 5 mg Ibuprofen (Motrin) 600 mg PO Q6H PRN PRN Reason: Pain (mild 1-3) Last Admin: 04/25/17 12:52 Dose: 600 mg Latanoprost (Xalatan 0.005% Ophth Soln) 0 ml EYEBOTH BEDTIME [facility] Last Admin: 04/25/17 19:56 Dose: 1 drop Metoprolol Succinate (Toprol Xl) 25 mg PO DAILY [facility] Last Admin: 04/26/17 10:04 Dose: 25 mg Morphine Sulfate (Morphine) 2 mg IVPUSH Q2H PRN PRN Reason: Pain (severe 7-10) Last Admin: 04/26/17 08:21 Dose: 2 mg Ptom (Timolol Maleate [Timoptic 0. 25% Ophth Soln] 1 Drop) 1 drop EYEBOTH BID [facility] Last Admin: 04/26/17 10:04 Dose: 1 drop Ondansetron HCl (Zofran) 4 mg IV Q6H PRN PRN Reason: Nausea/Vomiting Pantoprazole Sodium (Protonix) 40 mg PO BEDTIME [facility] Last Admin: 04/25/17 19:53 Dose: 40 mg Simvastatin (Zocor) 10 mg PO BEDTIME [facility] Last Admin: 04/25/17 19:53 Dose: 10 mg Sodium Chloride (Saline Flush) 10 ml FLUSH ASDIRECTED PRN PRN Reason: Keep Vein Open Tamsulosin HCl (Flomax) 0.4 mg PO BID [facility] Last Admin: 04/26/17 10:04 Dose: 0.4 mg Discontinued Medications Enoxaparin Sodium (Lovenox) 40 mg SUBCUT Q24H [facility] Last Admin: 04/25/17 06:06 Dose: Not Given Iopamidol (Isovue-300 (61%)) 100 ml IVPUSH ONETIME ONE Stop: 04/26/17 07:16 Last Admin: 04/26/17 09:40 Dose: 100 ml - Exam General: alert, oriented HEENT: Mucous membr. moist/pink Neck: supple Lungs: Normal respiratory effort, Decreased breath sounds (RLL) Cardiovascular: Regular Rate, Regular Rhythm Abdomen: bowel sounds present, soft, no tenderness Extremities: no edema Skin: warm, dry Neurological: no new focal deficit - Problem List & Annotations (1) PE, Pulmonary embolism SNOMED Code(s): 24365820 Code(s): I26.99 - OTHER PULMONARY EMBOLISM WITHOUT ACUTE COR PULMONALE Status: Acute Priority: High Current Visit: Yes - Problem List Review Problem List Initiated/Reviewed/Updated: Yes - My Orders Last 24 Hours: My Active Orders 04/25/17 09:33 FACTOR 5 LEIDEN MUTATION [REF] Stat PROTEIN C AND S ACTIVITY [REF] Stat 04/25/17 11:32 VL Duplex Lwr Ext Veins Ltd Rt [US] Routine 04/25/17 14:00 Echo Comp wo Cont [US] Routine 04/26/17 08:12 UA W/MICROSCOPIC [URIN] Routine 04/26/17 09:30 Abdomen Pelvis w Cont [CT] Routine 04/26/17 Breakfast NPO Now [Nothing per Oral Now Diet] [DIET] - Assessment Assessment:: Pulmonary Emboli - Plan Plan:: Patient does continue to have pleuritic chest pain. States gets only 2 hours or so of relief of pain with oral meds. Denies shortness of breath. Oxygen sats has been stable on room air. Denies hemoptysis. Patient had venous ultrasound done on the due to pain in his right calf. At that time, no evidence of DVT was noted. Now has developed large PE. No known history of blood clotting disorder but relates mother did of consequences of a clot. No history of cancer. Will proceed today with thrombophilia testing. Also proceed with a repeat ultrasound of his right leg. Proceed with an echocardiogram. Abdominal CT due to his concerns with bloating and look for source of clot. Patient and daughter in agreement with this plan. 04-26-2017 Patient is more uncomfortable this am. States hasn't had any meds since last evening. States activity, ie. up to the bathroom causes more pain. Denies shortness of breath. No cough. Sats are still good. He admits to chills which he feels could be related to a UTI as he does state he gets them frequently. No fever. BNP was negative this. Awaiting echo results. Is having a CT scan of his abdomen and pelvis this am for bloating and PE. Advised patient to ask for pain meds more often if needed. His blood is elevated this am but has yet to have his meds as he is NPO. Will continue to monitor. Inappropriate discharge due to further testing and pain.
[2017-04-26] MEDS: Acetaminophen/HYDROcodone 325-5 MG Tab PO PRN (12:03)
[2017-04-26] MEDS ORDERED: cefTRIAXone 1 GM Vial IVPUSH ONE (16:00)
[2017-04-26] MEDS: Simvastatin 10 MG Tab PO SCH (20:06)
[2017-04-26] MEDS: Pantoprazole 40 MG Tab.CR PO SCH (20:06)
[2017-04-26] MEDS: Finasteride 5 MG Tab PO SCH (20:06)
[2017-04-26] MEDS: Latanoprost 0.005% Ophth Soln 2.5 ML Bottle EYEBOTH SCH (20:08)
[2017-04-27] MEDS: Ibuprofen 200 MG Tab PO PRN (04:06)
[2017-04-27] MEDS: Enoxaparin 100 MG/1 ML Syringe SUBCUT SCH ×2 (08:26→19:33)
[2017-04-27] MEDS: cefTRIAXone 1 GM Vial IVPUSH SCH (08:27)
[2017-04-27] MEDS: Tamsulosin 0.4 MG Cap.ER PO SCH ×2 (08:27→19:35)
[2017-04-27] MEDS: Metoprolol Succinate 25 MG Tab.ER PO SCH (08:28)
[2017-04-27] MEDS: amLODIPine 2.5 MG Tab PO SCH (08:28)
[2017-04-27] MEDS: TIMOLOL MALEATE EYEBOTH SCH ×2 (08:29→19:31)
[2017-04-27] MEDS ORDERED: traMADol 50 MG Tab PO PRN (09:00)
--- NOTE | 2017-04-27 09:20 | PCM.PN ---
- General Info Date of Service: 04/27/17 Admission Dx/Problem (Free Text): Pulmonary Emboli Functional Status: Reports: pain controlled (with pain meds), tolerating diet. Denies: ambulating - Review of Systems General: Reports: Fever (had low grade fever ). Denies: Weakness, Fatigue Pulmonary: Reports: pleuritic chest pain. Denies: shortness of breath, cough Cardiovascular: Denies: Chest Pain, Edema, Lightheadedness Gastrointestinal: Denies: Abdominal pain, Diarrhea, Nausea, Vomiting Genitourinary: Reports: frequency Musculoskeletal: Reports: no symptoms Skin: Reports: no symptoms Neurological: Reports: No Symptoms - Patient Data Vitals - most recent: Last Vital Signs Temp 98.4 F 04/27/17 08:00 Pulse 67 04/27/17 08:28 Resp 16 04/27/17 08:00 BP 146/69 H 04/27/17 08:28 Pulse Ox 93 L 04/27/17 08:00 Weight - most recent: 218 lb 9.6 oz I&O - last 24 hours: Intake & Output 04/26/17 04/27/17 04/27/17 22:59 06:59 14:59 Intake Total 200 Balance 200 Lab Results last 24 hrs: Laboratory Results - last 24 hr 04/26/17 04/27/17 04/27/17 Range/Units 11:45 06:55 06:55 WBC 6.6 (5.0-10.0) 10^3/uL RBC 4.27 L (4.50-6.00) 10^6/uL Hgb 13.2 L (14.0-18.0) g/dL Hct 40.0 (40.0-54.0) % MCV 93.7 (82.0-94.0) fL MCH 30.9 (27.0-32.0) pg MCHC 33.0 (33.0-38.0) g/dL RDW Coeff of Fiona 12.1 (11.0-15.0) % Plt Count 174 (150-400) 10^3/uL Neut % (Auto) 66.0 (35-85) % Lymph % (Auto) 20.5 (10-55) % [place] % (Auto) 11.0 (0-16) % Eos % (Auto) 2.0 (0-5) % Baso % (Auto) 0.5 (0-3) % Neut # (Auto) 4.37 (1.80-7.00) 10^3/uL Lymph # (Auto) 1.36 (1.00-4.80) 10^3/uL [place] # (Auto) 0.73 (0.00-0.80) 10^3/uL Eos # (Auto) 0.13 (0.00-0.45) 10^3/uL Baso # (Auto) 0.03 10^3/uL PT 10.8 (9.7-12.3) SEC INR 1.00 (0.92-1.18) Urine Color Dark yellow (YELLOW) Urine Appearance Slightly cloudy (CLEAR) Urine pH 6.0 (4.5-8.0) Ur Specific [place] > 1.035 H (1.003-1.020) Urine Protein Trace H (NEGATIVE) mg/dL Urine Glucose (UA) Negative (NEGATIVE) mg/dL Urine Ketones Negative (NEGATIVE) mg/dL Urine Occult Blood Trace-intact H (NEGATIVE) Urine Nitrite Negative (NEGATIVE) Urine Bilirubin Negative (NEGATIVE) Urine Urobilinogen 1.0 (0.2-1.0) EU/dL Ur Leukocyte Esterase Trace H (NEGATIVE) Urine RBC 0-5 (0-5) /HPF Urine WBC 10-20 H (0-5) /HPF Ur Squamous Epith Cells Few H (NOT SEEN) /HPF Urine Bacteria Many H (NOT SEEN) /HPF Med Orders - Current: Current Medications Acetaminophen (Tylenol) 650 mg PO Q4H PRN PRN Reason: Pain (Mild 1-3)/fever Hydrocodone Bitart/Acetaminophen ([place] 325-5 Mg) 2 tab PO Q4H PRN PRN Reason: Pain (moderate 4-6) Last Admin: 04/26/17 12:03 Dose: 2 tab Amlodipine Besylate (Norvasc) 5 mg PO DAILY [facility] Last Admin: 04/27/17 08:28 Dose: 5 mg Ceftriaxone Sodium (Rocephin) 1 gm IVPUSH Q24H [facility] Last Admin: 04/27/17 08:27 Dose: 1 gm Enoxaparin Sodium (Lovenox) 100 mg SUBCUT Q12H [facility] Last Admin: 04/27/17 08:26 Dose: 100 mg Finasteride (Proscar) 5 mg PO BEDTIME [facility] Last Admin: 04/26/17 20:06 Dose: 5 mg Ibuprofen (Motrin) 600 mg PO Q6H PRN PRN Reason: Pain (mild 1-3) Last Admin: 04/27/17 04:06 Dose: 600 mg Latanoprost (Xalatan 0.005% Ophth Soln) 0 ml EYEBOTH BEDTIME [facility] Last Admin: 04/26/17 20:08 Dose: 1 drop Metoprolol Succinate (Toprol Xl) 25 mg PO DAILY [facility] Last Admin: 04/27/17 08:28 Dose: 25 mg Morphine Sulfate (Morphine) 2 mg IVPUSH Q2H PRN PRN Reason: Pain (severe 7-10) Last Admin: 04/26/17 08:21 Dose: 2 mg Ptom (Timolol Maleate [Timoptic 0. 25% Ophth Soln] 1 Drop) 1 drop EYEBOTH BID [facility] Last Admin: 04/27/17 08:29 Dose: 1 drop Ondansetron HCl (Zofran) 4 mg IV Q6H PRN PRN Reason: Nausea/Vomiting Last Admin: 04/26/17 11:52 Dose: 4 mg Pantoprazole Sodium (Protonix) 40 mg PO BEDTIME [facility] Last Admin: 04/26/17 20:06 Dose: 40 mg Simvastatin (Zocor) 10 mg PO BEDTIME [facility] Last Admin: 04/26/17 20:06 Dose: 10 mg Sodium Chloride (Saline Flush) 10 ml FLUSH ASDIRECTED PRN PRN Reason: Keep Vein Open Tamsulosin HCl (Flomax) 0.4 mg PO BID [facility] Last Admin: 04/27/17 08:27 Dose: 0.4 mg Tramadol HCl (Ultram) 0 mg PO Q6H PRN PRN Reason: Pain Discontinued Medications Ceftriaxone Sodium (Rocephin) 1 gm IVPUSH ONETIME ONE Stop: 04/26/17 16:01 Last Admin: 04/26/17 17:14 Dose: 1 gm Enoxaparin Sodium (Lovenox) 40 mg SUBCUT Q24H [facility] Last Admin: 04/25/17 06:06 Dose: Not Given Iopamidol (Isovue-300 (61%)) 100 ml IVPUSH ONETIME ONE Stop: 04/26/17 07:16 Last Admin: 04/26/17 09:40 Dose: 100 ml - Exam General: alert, oriented HEENT: Mucous membr. moist/pink Neck: supple Lungs: Normal respiratory effort, Decreased breath sounds Cardiovascular: Regular Rate, Regular Rhythm Abdomen: bowel sounds present, soft, no tenderness Extremities: no edema Skin: warm, dry Neurological: no new focal deficit - Problem List & Annotations (1) PE, Pulmonary embolism SNOMED Code(s): 57172491 Code(s): I26.99 - OTHER PULMONARY EMBOLISM WITHOUT ACUTE COR PULMONALE Status: Acute Priority: High Current Visit: Yes - Problem List Review Problem List Initiated/Reviewed/Updated: Yes - My Orders Last 24 Hours: My Active Orders 04/26/17 09:30 Abdomen Pelvis w Cont [CT] Routine 04/27/17 08:00 cefTRIAXone [Rocephin] 1 gm IVPUSH Q24H 04/27/17 09:00 traMADol [Ultram] See Dose Instructions PO Q6H PRN - Assessment Assessment:: Pulmonary Emboli - Plan Plan:: Patient does continue to have pleuritic chest pain. States gets only 2 hours or so of relief of pain with oral meds. Denies shortness of breath. Oxygen sats has been stable on room air. Denies hemoptysis. Patient had venous ultrasound done on the due to pain in his right calf. At that time, no evidence of DVT was noted. Now has developed large PE. No known history of blood clotting disorder but relates mother did of consequences of a clot. No history of cancer. Will proceed today with thrombophilia testing. Also proceed with a repeat ultrasound of his right leg. Proceed with an echocardiogram. Abdominal CT due to his concerns with bloating and look for source of clot. Patient and daughter in agreement with this plan. 04-26-2017 Patient is more uncomfortable this am. States hasn't had any meds since last evening. States activity, ie. up to the bathroom causes more pain. Denies shortness of breath. No cough. Sats are still good. He admits to chills which he feels could be related to a UTI as he does state he gets them frequently. No fever. BNP was negative this. Awaiting echo results. Is having a CT scan of his abdomen and pelvis this am for bloating and PE. Advised patient to ask for pain meds more often if needed. His blood pressure is elevated this am but has yet to have his meds as he is NPO. Will continue to monitor. Inappropriate discharge due to further testing and pain. 04-27-2017 Patient feeling better this am. Up in room without any increased shortness of breath. Does state he still has ongoing chest discomfort in the chest region. Questions about "lesser pain meds" that he could take and be discharged with that would inhibit driving or concern. Did run a low grade fever during the night. Currently being treated for a UTI as well. Blood pressure is improved this am to 146/69. Abdominal CT was negative for any concern. Awaiting echo report. Encourage ambulation today. Try Tramadol for the pain. Possible discharge in am.
[2017-04-27 12:29] LABS: CHLORIDE,CL 105 mEq/L (98-106); SODIUM,NA 140 mEq/L (136-145)
[2017-04-27] MEDS: Finasteride 5 MG Tab PO SCH (19:35)
[2017-04-27] MEDS: Pantoprazole 40 MG Tab.CR PO SCH (19:35)
[2017-04-27] MEDS: Simvastatin 10 MG Tab PO SCH (19:35)
[2017-04-27] MEDS: Latanoprost 0.005% Ophth Soln 2.5 ML Bottle EYEBOTH SCH (19:36)
[2017-04-28 07:24] VITALS: BP 156/94
[2017-04-28 07:33] LABS: CHLORIDE,CL 105 mEq/L (98-106); SODIUM,NA 142 mEq/L (136-145)
[2017-04-28] MEDS: amLODIPine 2.5 MG Tab PO SCH (07:53)
[2017-04-28] MEDS: Metoprolol Succinate 25 MG Tab.ER PO SCH (07:54)
[2017-04-28] MEDS: Tamsulosin 0.4 MG Cap.ER PO SCH (07:54)
[2017-04-28] MEDS: cefTRIAXone 1 GM Vial IVPUSH SCH (07:55)
[2017-04-28] MEDS: Enoxaparin 100 MG/1 ML Syringe SUBCUT SCH (07:55)
[2017-04-28] MEDS: TIMOLOL MALEATE EYEBOTH SCH (07:55)
--- NOTE | 2017-04-29 07:45 | PCM.DCSUM1 ---
Discharge Summary - Hospital Course Free Text/Narrative:: Patient initially presented to ED and evaluated by Raffaele Ryan due to pleuritic chest pain and shortness of breath. Work up did show PE. Raffaele contacted hospitalist and as patient was stable, was discharged home on Eliquis. Later returned that night due to increased pain and shortness of breath and was admitted. Patient had previous been seen for a small clot in his saphenous vein and placed on aspirin. No DVT was found at that time. Admitted and started on Lovenox injections, pain medications. Lab work up otherwise essentially negative. - Discharge Data Discharge Date: 04/28/17 Discharge Disposition: Home, Self-Care 01 Condition: Good - Discharge Diagnosis/Problem(s) (1) PE, Pulmonary embolism SNOMED Code(s): 03489858 ICD Code: I26.99 - OTHER PULMONARY EMBOLISM WITHOUT ACUTE COR PULMONALE Status: Acute Priority: High - Patient Summary/Data Complications: none Hospital Course: Patient did well through hospitalization. He did not require oxygen during his stay. Pleuritic chest pain slowly improved. Was covered with Lovenox injections. Improved status to ambulate in halls. Labs remained stable. Did repeat the ultrasound of his legs on day 1 and now noted DVT in his peroneal vein. Echocardiogram was done and is good. CT scan of his abdomen and pelvis was done due to bloating and to rule out any malignancy, CT was clear. Patient had reported chills during stay, UA done and was found to have UTI and started on Rocephin. Able to tolerate pain with Tramadol by discharge and doing very well. Will discharge home on Eliquis, Ceftin for his UTI and Tramadol for pain. Will follow up with Dr. Patterson in one week. - Patient Instructions Diet: Heart Healthy Diet Activity: As Tolerated Showering/Bathing: May Shower - Discharge Plan Prescriptions/Med Rec: Apixaban [Eliquis] 5 mg PO BID #60 tablet Aspirin [Adult Low Dose Aspirin EC] 81 mg PO DAILY #30 tablet. Cefuroxime [Ceftin] 250 mg PO BID #20 tablet traMADol [Ultram] 50 mg PO Q6H PRN #30 tablet PRN Reason: Pain Home Medications: Home Meds Finasteride 5 mg PO BEDTIME 05/24/15 [History] Multivitamin [Multivitamins] 1 each PO DAILY 05/24/15 [History] Omeprazole 20 mg PO BEDTIME 05/24/15 [History] Simvastatin 10 mg PO BEDTIME 05/24/15 [History] Tamsulosin [Flomax] 0.4 mg PO BID 05/24/15 [History] Travoprost [Travatan Z 0.004% Ophth Soln] 1 drop EYEBOTH BEDTIME 01/01/16 [ History] Metoprolol Succinate [Toprol XL] 25 mg PO DAILY 04/24/17 [History] Timolol Maleate [Timoptic 0.25% Ophth Soln] 1 drop EYEBOTH BID 04/24/17 [History ] amLODIPine [Norvasc] 5 mg PO DAILY 04/24/17 [History] Apixaban [Eliquis] 5 mg PO BID #60 tablet 04/28/17 [Rx] Aspirin [Adult Low Dose Aspirin EC] 81 mg PO DAILY #30 tablet. 04/28/17 [Rx] Cefuroxime [Ceftin] 250 mg PO BID #20 tablet 04/28/17 [Rx] traMADol [Ultram] 50 mg PO Q6H PRN #30 tablet 04/28/17 [Rx] Forms: ED Department Discharge Referrals: Derrick Patterson MD [Primary Care Provider] - (Follow up with Dr. Patterson in one week) - Discharge Summary/Plan Comment DC Time >30 min.: No - General Info Date of Service: 04/28/17 Admission Dx/Problem (Free Text: Pulmonary Emboli Functional Status: Reports: pain controlled, tolerating diet, ambulating - Review of Systems General: Denies: Fever, Weakness, Fatigue HEENT: Reports: no symptoms Pulmonary: Reports: pleuritic chest pain. Denies: shortness of breath, cough Cardiovascular: Denies: Chest Pain, Edema, Lightheadedness Gastrointestinal: Denies: Abdominal pain, Constipation, Diarrhea, Nausea, Vomiting Genitourinary: Reports: no symptoms Musculoskeletal: Reports: no symptoms Skin: Reports: no symptoms Neurological: Reports: No Symptoms Psychiatric: Reports: no symptoms - Patient Data Vitals - Most Recent: Last Vital Signs Temp 98.2 F 04/28/17 07:23 Pulse 60 04/28/17 07:54 Resp 20 04/28/17 07:23 BP 156/94 H 04/28/17 07:54 Pulse Ox 95 04/28/17 07:23 Weight - Most Recent: 218 lb 9.6 oz Lab Results - Last 24 hrs: Laboratory Results - last 24 hr 04/25/17 04/25/17 04/28/17 Range/Units 09:33 09:33 07:00 WBC 5.9 (5.0-10.0) 10^3/uL RBC 4.48 L (4.50-6.00) 10^6/uL Hgb 14.0 (14.0-18.0) g/dL Hct 42.2 (40.0-54.0) % MCV 94.2 H (82.0-94.0) fL MCH 31.3 (27.0-32.0) pg MCHC 33.2 (33.0-38.0) g/dL RDW Coeff of Fiona 12.0 (11.0-15.0) % Plt Count 197 (150-400) 10^3/uL Neut % (Auto) 63.3 (35-85) % Lymph % (Auto) 21.5 (10-55) % [place] % (Auto) 11.3 (0-16) % Eos % (Auto) 3.2 (0-5) % Baso % (Auto) 0.7 (0-3) % Neut # (Auto) 3.74 (1.80-7.00) 10^3/uL Lymph # (Auto) 1.27 (1.00-4.80) 10^3/uL [place] # (Auto) 0.67 (0.00-0.80) 10^3/uL Eos # (Auto) 0.19 (0.00-0.45) 10^3/uL Baso # (Auto) 0.04 10^3/uL Protein C Activity 94 (70-145) % Protein S Activity 84 (69-161) % Factor V Leiden Method See below Fac V Leiden Mutat Note See below Factor V Leiden Negative (NEG) Factor V Leiden Interp See below Med Orders - Current: Current Medications Discontinued Medications Acetaminophen (Tylenol) 650 mg PO Q4H PRN PRN Reason: Pain (Mild 1-3)/fever Hydrocodone Bitart/Acetaminophen ([place] 325-5 Mg) 2 tab PO Q4H PRN PRN Reason: Pain (moderate 4-6) Last Admin: 04/26/17 12:03 Dose: 2 tab Amlodipine Besylate (Norvasc) 5 mg PO DAILY [facility] Last Admin: 04/28/17 07:53 Dose: 5 mg Ceftriaxone Sodium (Rocephin) 1 gm IVPUSH Q24H [facility] Last Admin: 04/28/17 07:55 Dose: 1 gm Ceftriaxone Sodium (Rocephin) 1 gm IVPUSH ONETIME ONE Stop: 04/26/17 16:01 Last Admin: 04/26/17 17:14 Dose: 1 gm Enoxaparin Sodium (Lovenox) 40 mg SUBCUT Q24H [facility] Last Admin: 04/25/17 06:06 Dose: Not Given Enoxaparin Sodium (Lovenox) 100 mg SUBCUT Q12H [facility] Last Admin: 04/28/17 07:55 Dose: 100 mg Finasteride (Proscar) 5 mg PO BEDTIME [facility] Last Admin: 04/27/17 19:35 Dose: 5 mg Ibuprofen (Motrin) 600 mg PO Q6H PRN PRN Reason: Pain (mild 1-3) Last Admin: 04/27/17 04:06 Dose: 600 mg Iopamidol (Isovue-300 (61%)) 100 ml IVPUSH ONETIME ONE Stop: 04/26/17 07:16 Last Admin: 04/26/17 09:40 Dose: 100 ml Latanoprost (Xalatan 0.005% Ophth Soln) 0 ml EYEBOTH BEDTIME [facility] Last Admin: 04/27/17 19:36 Dose: 1 drop Metoprolol Succinate (Toprol Xl) 25 mg PO DAILY [facility] Last Admin: 04/28/17 07:54 Dose: 25 mg Morphine Sulfate (Morphine) 2 mg IVPUSH Q2H PRN PRN Reason: Pain (severe 7-10) Last Admin: 04/26/17 08:21 Dose: 2 mg Ptom (Timolol Maleate [Timoptic 0. 25% Ophth Soln] 1 Drop) 1 drop EYEBOTH BID [facility] Last Admin: 04/28/17 07:55 Dose: 1 drop Ondansetron HCl (Zofran) 4 mg IV Q6H PRN PRN Reason: Nausea/Vomiting Last Admin: 04/26/17 11:52 Dose: 4 mg Pantoprazole Sodium (Protonix) 40 mg PO BEDTIME [facility] Last Admin: 04/27/17 19:35 Dose: 40 mg Simvastatin (Zocor) 10 mg PO BEDTIME [facility] Last Admin: 04/27/17 19:35 Dose: 10 mg Sodium Chloride (Saline Flush) 10 ml FLUSH ASDIRECTED PRN PRN Reason: Keep Vein Open Tamsulosin HCl (Flomax) 0.4 mg PO BID [facility] Last Admin: 04/28/17 07:54 Dose: 0.4 mg Tramadol HCl (Ultram) 50 mg PO Q6H PRN PRN Reason: Pain Last Admin: 04/27/17 23:54 Dose: 50 mg - Exam General: Reports: alert, oriented HEENT: Reports: Mucous membr. moist/pink Neck: Reports: supple Lungs: Reports: Clear to auscultation, Normal respiratory effort Cardiovascular: Reports: Regular Rate, Regular Rhythm Abdomen: Reports: bowel sounds present, soft, no tenderness Extremities: Reports: no edema Skin: Reports: warm, dry Neurological: Reports: no new focal deficit, strength equal bilateral *Q Meaningful Use (DIS) - VTE *Q VTE Criteria *Q: - Stroke *Q Stroke Criteria *Q: - AMI *Q AMI Criteria *Q:
== END 2017-04-28 11:15 | disposition home or self-care (01) | DRG 176 ==
LOC: CC.ED 03:30 → CC.MS 04:30 → UNDOADMIN 04:30 → CC.MS 05:08
PROVIDERS: ADMIT Nurse Practitioner; ATTEND Family Medicine
DX: I26.99 Other pulmonary embolism without acute cor pulmonale (principal); N39.0 Urinary tract infection, site not specified; N40.0 Benign prostatic hyperplasia without lower urinary tract symptoms; H40.9 Unspecified glaucoma; I10 Essential (primary) hypertension
CPT/HCPCS: 36415; 71020; 74177; 80048; 81001; 81241; 83880; 85025; 85303; 85306; 85610; 86140; 87086; 87088; 87186; 93010; 93306; 93971-RT; 99284; A9270-GY; J0696; J1650; J2270; J2405; Q9967

== ENCOUNTER 2018-04-25 14:52 | Observation (INO) | payer MEDICARE, OTHER ==
[2018-04-25 15:25] LABS: CHLORIDE,CL 105 mEq/L (98-106); SODIUM,NA 140 mEq/L (136-145)
[2018-04-25] MEDS ORDERED: Iopamidol 755 Mg/ML 100 ML Bottle IVPUSH ONE (15:51)
[2018-04-25] MEDS ORDERED: Acetaminophen 325 MG Tab PO PRN (17:18)
[2018-04-25] MEDS ORDERED: Temazepam 15 MG Cap PO PRN (17:18)
[2018-04-25] MEDS ORDERED: Sodium Chloride 0.9% 10 ML Syringe FLUSH PRN (17:18)
[2018-04-25] MEDS: Enoxaparin 100 MG/1 ML Syringe SUBCUT SCH ×2 (18:12→19:25)
[2018-04-25] MEDS ORDERED: Nitroglycerin 0.4 MG Tab.SL SL PRN (18:37)
[2018-04-25] MEDS: Latanoprost 0.005% Ophth Soln 2.5 ML Bottle EYEBOTH SCH (19:25)
[2018-04-25] MEDS: Simvastatin 10 MG Tab PO SCH (19:25)
[2018-04-25] MEDS: Tamsulosin 0.4 MG Cap.ER PO SCH (19:25)
[2018-04-25] MEDS: Finasteride 5 MG Tab PO SCH (19:26)
[2018-04-25] MEDS ORDERED: TIMOLOL MALEATE EYEBOTH SCH (20:00)
[2018-04-26] MEDS: Pantoprazole 40 MG Tab.CR PO SCH (06:53)
[2018-04-26] MEDS: Tamsulosin 0.4 MG Cap.ER PO SCH ×2 (07:27→19:42)
[2018-04-26] MEDS: Aspirin 81 MG Tab.EC PO SCH (07:27)
[2018-04-26] MEDS: Cyanocobalamin (Vitamin B12) 100 MCG Tab PO SCH (07:28)
[2018-04-26] MEDS: Enoxaparin 100 MG/1 ML Syringe SUBCUT SCH ×2 (07:28→19:42)
[2018-04-26] MEDS: Metoprolol Succinate 25 MG Tab.ER PO SCH (07:33)
[2018-04-26] MEDS: amLODIPine 2.5 MG Tab PO SCH (07:33)
--- NOTE | 2018-04-26 14:02 | PCM.PN ---
- General Info Date of Service: 04/26/18 Admission Dx/Problem (Free Text): PE Functional Status: Reports: Pain Controlled, Tolerating Diet. Denies: Ambulating - Review of Systems General: Denies: Fever, Weakness, Fatigue HEENT: Reports: No Symptoms Pulmonary: Reports: Shortness of Breath. Denies: Cough Cardiovascular: Denies: Chest Pain, Edema, Lightheadedness Gastrointestinal: Denies: Abdominal Pain, Nausea, Vomiting Genitourinary: Reports: No Symptoms Musculoskeletal: Reports: No Symptoms Skin: Reports: No Symptoms Neurological: Reports: No Symptoms Psychiatric: Reports: No Symptoms - Patient Data Vitals - Most Recent: Last Vital Signs Temp 98.5 F 04/26/18 12:00 Pulse 69 04/26/18 12:00 Resp 20 04/26/18 12:00 BP 143/82 H 04/26/18 12:00 Pulse Ox 96 04/26/18 12:00 Weight - Most Recent: 223 lb 4.8 oz Lab Results Last 24 Hours: Laboratory Results - last 24 hr 04/25/18 04/25/18 04/25/18 Range/Units 14:57 14:57 14:57 WBC 5.9 (5.0-10.0) 10^3/uL RBC 4.74 (4.50-6.00) 10^6/uL Hgb 15.0 (14.0-18.0) g/dL Hct 44.6 (40.0-54.0) % MCV 94.1 H (82.0-94.0) fL MCH 31.6 (27.0-32.0) pg MCHC 33.6 (33.0-38.0) g/dL RDW Coeff of Fiona 12.2 (11.0-15.0) % Plt Count 183 (150-400) 10^3/uL Neut % (Auto) 66.1 (35-85) % Lymph % (Auto) 21.3 (10-55) % [place] % (Auto) 9.2 (0-16) % Eos % (Auto) 2.7 (0-5) % Baso % (Auto) 0.7 (0-3) % Neut # (Auto) 3.88 (1.80-7.00) 10^3/uL Lymph # (Auto) 1.25 (1.00-4.80) 10^3/uL [place] # (Auto) 0.54 (0.00-0.80) 10^3/uL Eos # (Auto) 0.16 (0.00-0.45) 10^3/uL Baso # (Auto) 0.04 10^3/uL PT (9.7-12.3) SEC INR (0.92-1.18) APTT (23.2-32.3) SEC D-Dimer, Quantitative 2.71 H (0.00-0.50) Sodium 140 (136-145) mEq/L Potassium 5.0 (3.5-5.0) mEq/L Chloride 105 (98-106) mEq/L Carbon Dioxide 29 (21-32) mmol/L BUN 23 H (7-18) mg/dL Creatinine 1.2 (0.7-1.3) mg/dL Est Cr Clr Drug Dosing TNP Estimated GFR (MDRD) 59 L (>=60) mL/min Glucose 105 H (75-99) mg/dL Calcium 8.6 (8.4-10.1) mg/dL Total Bilirubin 0.5 (0.0-1.0) mg/dL AST 20 (15-37) U/L ALT 21 (12-78) U/L Alkaline Phosphatase 101 (46-116) U/L Troponin I < 0.017 (0.00-0.06) ng/mL C-Reactive Protein 0.3 (0.2-0.8) mg/dL NT-Pro-B Natriuret Pep 152 (0-1000) pg/mL Total Protein 7.1 (6.4-8.2) g/dL Albumin 3.7 (3.4-5.0) g/dL 04/25/18 Range/Units 17:18 WBC (5.0-10.0) 10^3/uL RBC (4.50-6.00) 10^6/uL Hgb (14.0-18.0) g/dL Hct (40.0-54.0) % MCV (82.0-94.0) fL MCH (27.0-32.0) pg MCHC (33.0-38.0) g/dL RDW Coeff of Fiona (11.0-15.0) % Plt Count (150-400) 10^3/uL Neut % (Auto) (35-85) % Lymph % (Auto) (10-55) % [place] % (Auto) (0-16) % Eos % (Auto) (0-5) % Baso % (Auto) (0-3) % Neut # (Auto) (1.80-7.00) 10^3/uL Lymph # (Auto) (1.00-4.80) 10^3/uL [place] # (Auto) (0.00-0.80) 10^3/uL Eos # (Auto) (0.00-0.45) 10^3/uL Baso # (Auto) 10^3/uL PT 10.1 (9.7-12.3) SEC INR 0.97 (0.92-1.18) APTT 28.2 (23.2-32.3) SEC D-Dimer, Quantitative (0.00-0.50) Sodium (136-145) mEq/L Potassium (3.5-5.0) mEq/L Chloride (98-106) mEq/L Carbon Dioxide (21-32) mmol/L BUN (7-18) mg/dL Creatinine (0.7-1.3) mg/dL Est Cr Clr Drug Dosing Estimated GFR (MDRD) (>=60) mL/min Glucose (75-99) mg/dL Calcium (8.4-10.1) mg/dL Total Bilirubin (0.0-1.0) mg/dL AST (15-37) U/L ALT (12-78) U/L Alkaline Phosphatase (46-116) U/L Troponin I (0.00-0.06) ng/mL C-Reactive Protein (0.2-0.8) mg/dL NT-Pro-B Natriuret Pep (0-1000) pg/mL Total Protein (6.4-8.2) g/dL Albumin (3.4-5.0) g/dL Med Orders - Current: Current Medications Acetaminophen (Tylenol) 650 mg PO Q4H PRN PRN Reason: Pain (Mild 1-3)/fever Amlodipine Besylate (Norvasc) 5 mg PO DAILY [facility] Last Admin: 04/26/18 07:33 Dose: 5 mg Aspirin (Halfprin) 81 mg PO DAILY [facility] Last Admin: 04/26/18 07:27 Dose: 81 mg Cyanocobalamin (Vitamin B12) 250 mcg PO DAILY [facility] Last Admin: 04/26/18 07:28 Dose: 250 mcg Enoxaparin Sodium (Lovenox) 100 mg SUBCUT BID [facility] Last Admin: 04/26/18 07:28 Dose: 100 mg Finasteride (Proscar) 5 mg PO BEDTIME [facility] Last Admin: 04/25/18 19:26 Dose: 5 mg Latanoprost (Xalatan 0.005% Ophth Soln) 0 ml EYEBOTH BEDTIME [facility] Last Admin: 04/25/18 19:25 Dose: 1 drop Metoprolol Succinate (Toprol Xl) 25 mg PO DAILY [facility] Last Admin: 04/26/18 07:33 Dose: 25 mg Nitroglycerin (Nitrostat) 0.4 mg SL Q5M PRN PRN Reason: Chest Pain Non-Formulary Medication (Timolol Maleate [Timoptic 0.25% Ophth Soln]) 1 drop EYEBOTH BID [facility] Pantoprazole Sodium (Protonix) 40 mg PO DAILY@0700 [facility] Last Admin: 04/26/18 06:53 Dose: 40 mg Simvastatin (Zocor) 10 mg PO BEDTIME [facility] Last Admin: 04/25/18 19:25 Dose: 10 mg Sodium Chloride (Saline Flush) 10 ml FLUSH ASDIRECTED PRN PRN Reason: Keep Vein Open Tamsulosin HCl (Flomax) 0.4 mg PO BID [facility] Last Admin: 04/26/18 07:27 Dose: 0.4 mg Temazepam (Restoril) 15 mg PO BEDTIME PRN PRN Reason: Sleep Discontinued Medications Iopamidol (Isovue-370 (76%)) 100 ml IVPUSH ONETIME ONE Stop: 04/25/18 15:52 Last Admin: 04/25/18 16:06 Dose: 100 ml - Exam General: Alert, Oriented HEENT: Mucous Membr. Moist/[place] Neck: Supple Lungs: Clear to Auscultation, Normal Respiratory Effort Cardiovascular: Regular Rate, Regular Rhythm GI/Abdominal Exam: Normal Bowel Sounds, Soft, Non-Tender Extremities: Normal Inspection, No Pedal Edema Skin: Warm, Dry Neurological: No New Focal Deficit - Problem List & Annotations (1) PE, Pulmonary embolism SNOMED Code(s): 72483947 Code(s): I26.99 - OTHER PULMONARY EMBOLISM WITHOUT ACUTE COR PULMONALE Status: Acute Priority: High Current Visit: Yes - Problem List Review Problem List Initiated/Reviewed/Updated: Yes - Assessment Assessment:: Pulmonary Emboli - Plan Plan:: Patient states is feeling good today, less short of breath at rest but has not been out and ambulating and prior to admission, was having more SOB with exertion. Oxygen sats good at rest. No chest pain. No edema in legs. Patient had a positive d-dimer yesterday, noted to have bilateral PE. Patient has had a history of DVT after being ill but had subsequent resolution of that. Vital signs are good. Did note bradycardia during the night but was asymptomatic. Will continue with Lovenox 100 mg BID. Clotting studies obtained. Encouraged ambulation while monitoring oxygen saturation. Discussed restarting Eliquis tomorrow. Also discussed with patient and daughter referral to hematology for further work up due to now 2 episodes of clots without a known cause. Patient did have CT scans done last year when had the clot and were negative at that time. Patient and family in agreement with that. Will arrange as an outpatient once discharged.
[2018-04-26] MEDS: Finasteride 5 MG Tab PO SCH (19:42)
[2018-04-26] MEDS: Simvastatin 10 MG Tab PO SCH (19:42)
[2018-04-26] MEDS: Latanoprost 0.005% Ophth Soln 2.5 ML Bottle EYEBOTH SCH (19:43)
[2018-04-27] MEDS: Cyanocobalamin (Vitamin B12) 100 MCG Tab PO SCH (07:18)
[2018-04-27] MEDS: Enoxaparin 100 MG/1 ML Syringe SUBCUT SCH (07:19)
[2018-04-27] MEDS: Pantoprazole 40 MG Tab.CR PO SCH (07:19)
[2018-04-27] MEDS: Aspirin 81 MG Tab.EC PO SCH (07:19)
[2018-04-27] MEDS: Tamsulosin 0.4 MG Cap.ER PO SCH (07:19)
[2018-04-27 07:58] VITALS: BP 140/79
[2018-04-27] MEDS: amLODIPine 2.5 MG Tab PO SCH (08:04)
[2018-04-27] MEDS: Metoprolol Succinate 25 MG Tab.ER PO SCH (08:04)
--- NOTE | 2018-04-27 20:43 | PCM.DCSUM1 ---
Discharge Summary - Hospital Course Free Text/Narrative:: Patient presented to clinic for evaluation with Dr. Patterson due to dyspnea with exertion. States had become more short of breath when working hard and becomes much more tired than usual. Was not experiencing any shortness of breath at rest, no chest pain. Lab work was done that did show an elevated d-dimer, CTA of chest then done to rule out PE. 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 In July, had CT scan and ultrasound and since clear, was discontinued off the Eliquis and has done well until recently. Diagnosis: Stroke: No - Discharge Data Discharge Date: 04/27/18 Discharge Disposition: Home, Self-Care 01 Condition: Good - Discharge Diagnosis/Problem(s) (1) PE, Pulmonary embolism SNOMED Code(s): 09803047 ICD Code: I26.99 - OTHER PULMONARY EMBOLISM WITHOUT ACUTE COR PULMONALE Status: Acute Priority: High - Patient Summary/Data Complications: none Hospital Course: Patient admitted for shortness of breath with exertion and elevated d-dimer. CTA of chest was done that did show bilateral pulmonary emboli. Started on Lovenox 100 mg BID during admission. Has done very well. Does not have any chest pressure, ambulates short distances without shortness of breath and stable oxygen saturations. Due to second event of clot, discussed further need for thrombophilia work up. Clotting factors ordered but will need to also see hematology for further work up. Had no other acute events during stay. Did note bradycardia during the night at times but asymptomatic. Blood pressure stable. - Patient Instructions Diet: Usual Diet as Tolerated Activity: As Tolerated - Discharge Plan Prescriptions/Med Rec: Apixaban [Eliquis] 5 mg PO BID #120 tablet Home Medications: Home Meds Finasteride 5 mg PO BEDTIME 05/24/15 [History] Multivitamin [Multivitamins] 1 each PO DAILY 05/24/15 [History] Omeprazole 20 mg PO BEDTIME 05/24/15 [History] Simvastatin 10 mg PO BEDTIME 05/24/15 [History] Tamsulosin [Flomax] 0.4 mg PO BID 05/24/15 [History] Travoprost [Travatan Z 0.004% Ophth Soln] 1 drop EYEBOTH BEDTIME 01/01/16 [ History] Metoprolol Succinate [Toprol XL] 25 mg PO DAILY 04/24/17 [History] Timolol Maleate [Timoptic 0.25% Ophth Soln] 1 drop EYEBOTH BID 04/24/17 [History ] amLODIPine [Norvasc] 5 mg PO DAILY 04/24/17 [History] Cranberry Extract [Cranberry] 250 mg PO DAILY PRN 04/25/18 [History] Cyanocobalamin (Vitamin B-12) [Vitamin B-12] 250 mcg PO DAILY 04/25/18 [History] Fish Oil/[place]-3 Fatty Acids [Fish Oil 1,000 MG] 1 each PO DAILY 04/25/18 [ History] Nitroglycerin [Nitrostat] 0.4 mg SL Q5M PRN MDD 3 04/25/18 [History] Ubidecarenone [Co Q-10] 100 mg PO DAILY 04/25/18 [History] Apixaban [Eliquis] 5 mg PO BID #120 tablet 04/27/18 [Rx] Referrals: Derrick Patterson MD [Primary Care Provider] - (Follow up with Dr. Patterson next , May 04 in [place]) - Discharge Summary/Plan Comment DC Time >30 min.: No Discharge Summary/Plan Comment: Discharge home Start Eliquis 10 mg BID until follow up appointment with DR. Patterson. Hospital follow up next and at that time, will arrange for referral to hematology for further work up. - General Info Date of Service: 04/27/18 Admission Dx/Problem (Free Text: PE Functional Status: Reports: Pain Controlled, Tolerating Diet, Ambulating - Review of Systems General: Denies: Weakness, Fatigue, Malaise HEENT: Reports: No Symptoms Pulmonary: Denies: Shortness of Breath, Cough Cardiovascular: Denies: Chest Pain, Edema, Lightheadedness Gastrointestinal: Denies: Abdominal Pain, Nausea, Vomiting Genitourinary: Reports: No Symptoms Musculoskeletal: Reports: No Symptoms Skin: Reports: No Symptoms Neurological: Reports: No Symptoms - Patient Data Vitals - Most Recent: Last Vital Signs Temp 98.2 F 04/27/18 07:57 Pulse 63 04/27/18 08:04 Resp 20 04/27/18 07:57 BP 140/79 04/27/18 08:04 Pulse Ox 95 04/27/18 07:57 Weight - Most Recent: 223 lb 4.8 oz Med Orders - Current: Current Medications Discontinued Medications Acetaminophen (Tylenol) 650 mg PO Q4H PRN PRN Reason: Pain (Mild 1-3)/fever Amlodipine Besylate (Norvasc) 5 mg PO DAILY [facility] Last Admin: 04/27/18 08:04 Dose: 5 mg Aspirin (Halfprin) 81 mg PO DAILY [facility] Last Admin: 04/27/18 07:19 Dose: 81 mg Cyanocobalamin (Vitamin B12) 250 mcg PO DAILY [facility] Last Admin: 04/27/18 07:18 Dose: 250 mcg Enoxaparin Sodium (Lovenox) 100 mg SUBCUT BID [facility] Last Admin: 04/27/18 07:19 Dose: 100 mg Finasteride (Proscar) 5 mg PO BEDTIME [facility] Last Admin: 04/26/18 19:42 Dose: 5 mg Iopamidol (Isovue-370 (76%)) 100 ml IVPUSH ONETIME ONE Stop: 04/25/18 15:52 Last Admin: 04/25/18 16:06 Dose: 100 ml Latanoprost (Xalatan 0.005% Ophth Soln) 0 ml EYEBOTH BEDTIME [facility] Last Admin: 04/26/18 19:43 Dose: 1 drop Metoprolol Succinate (Toprol Xl) 25 mg PO DAILY [facility] Last Admin: 04/27/18 08:04 Dose: 25 mg Nitroglycerin (Nitrostat) 0.4 mg SL Q5M PRN PRN Reason: Chest Pain Non-Formulary Medication (Timolol Maleate [Timoptic 0.25% Ophth Soln]) 1 drop EYEBOTH BID [facility] Pantoprazole Sodium (Protonix) 40 mg PO DAILY@0700 [facility] Last Admin: 04/27/18 07:19 Dose: 40 mg Simvastatin (Zocor) 10 mg PO BEDTIME [facility] Last Admin: 04/26/18 19:42 Dose: 10 mg Sodium Chloride (Saline Flush) 10 ml FLUSH ASDIRECTED PRN PRN Reason: Keep Vein Open Tamsulosin HCl (Flomax) 0.4 mg PO BID [facility] Last Admin: 04/27/18 07:19 Dose: 0.4 mg Temazepam (Restoril) 15 mg PO BEDTIME PRN PRN Reason: Sleep Last Admin: 04/26/18 22:30 Dose: 15 mg - Exam General: Reports: Alert, Oriented HEENT: Reports: Mucous Membr. Moist/[place] Neck: Reports: Supple Lungs: Reports: Clear to Auscultation, Normal Respiratory Effort Cardiovascular: Reports: Regular Rate, Regular Rhythm GI/Abdominal Exam: Normal Bowel Sounds, Soft, Non-Tender Extremities: Normal Inspection, No Pedal Edema
== END 2018-04-27 10:13 | disposition home or self-care (01) ==
LOC: CC.DI 14:52 → UNDOADMOB 17:12 → CC.MS 17:12
PROVIDERS: ADMIT Physician Assistant Medical; ATTEND Family Medicine
DX: R06.09 Other forms of dyspnea (principal); R79.89 Other specified abnormal findings of blood chemistry; I26.99 Other pulmonary embolism without acute cor pulmonale; I25.10 Atherosclerotic heart disease of native coronary artery without angina pectoris; K21.9 Gastro-esophageal reflux disease without esophagitis; E78.5 Hyperlipidemia, unspecified; I10 Essential (primary) hypertension; Z79.82 Long term (current) use of aspirin; Z79.899 Other long term (current) drug therapy
CPT/HCPCS: 36415; 71046; 71275; 80053; 81241; 83880; 84484; 85025; 85300; 85379; 85610; 85730; 86140; 86147; 93005; 93010; 99217; 99220; 99225; A9270-GY; J1650; Q9967

== ENCOUNTER 2022-05-10 09:36 | Inpatient (IN) | payer MEDICARE, OTHER ==
[2022-05-10 10:14] LABS: CHLORIDE,CL 106 mEq/L (98-106); ESTIMATED GFR 55 mL/min (>=60); SODIUM,NA 143 mEq/L (136-145)
[2022-05-10] MEDS ORDERED: Iopamidol 755 Mg/ML 100 ML Bottle IVPUSH ONE (10:35)
[2022-05-10] MEDS ORDERED: Docusate Sodium 100 MG Cap PO PRN (14:06)
[2022-05-10] MEDS ORDERED: Acetaminophen 325 MG Tab PO PRN (14:06)
[2022-05-10] MEDS ORDERED: Nitroglycerin 0.4 MG Tab.SL SL PRN (16:50)
[2022-05-10] MEDS: Nitrofurantoin Monohydrate/Macrocrystalline 100 MG Cap **PTOM PO SCH (17:25)
[2022-05-10] MEDS ORDERED: Nitrofurantoin Monohydrate/Macrocrystalline 100 MG Cap **PTOM PO SCH (17:30)
[2022-05-10] MEDS: Apixaban 5 MG Tab **PTOM PO SCH (19:32)
[2022-05-10] MEDS: Tamsulosin 0.4 MG Cap.ER **PTOM PO SCH (19:32)
[2022-05-10] MEDS: SIMVASTATIN 10 MG PO SCH (19:32)
[2022-05-10] MEDS: Finasteride 5 MG Tab **PTOM PO SCH (19:33)
[2022-05-10] MEDS ORDERED: TIMOLOL MALEATE EYEBOTH SCH (20:00)
[2022-05-11] MEDS: OMEPRAZOLE 20 MG PO SCH (06:41)
[2022-05-11] MEDS: Nitrofurantoin Monohydrate/Macrocrystalline 100 MG Cap **PTOM PO SCH (07:54)
[2022-05-11] MEDS: Metoprolol Succinate 25 MG Tab.ER **PTOM PO SCH (07:54)
[2022-05-11] MEDS: Tamsulosin 0.4 MG Cap.ER **PTOM PO SCH ×2 (07:54→19:33)
[2022-05-11] MEDS: CRANBERRY PO SCH (07:54)
[2022-05-11] MEDS: FISH OIL PO SCH (07:55)
[2022-05-11] MEDS: OMEGA PO SCH (07:55)
[2022-05-11] MEDS: FATTY ACIDS PO SCH (07:55)
[2022-05-11] MEDS: Apixaban 5 MG Tab **PTOM PO SCH ×2 (07:56→19:33)
[2022-05-11] MEDS: UBIDECARENONE 100 MG PO SCH (07:56)
[2022-05-11] MEDS: Furosemide 20 MG Tab PO SCH (12:39)
[2022-05-11] MEDS: Ampicillin 2 GM in Sodium Chloride 0.9% 100 ML IV SCH ×3 (12:41→23:56)
[2022-05-11] MEDS: Finasteride 5 MG Tab **PTOM PO SCH (19:32)
[2022-05-11] MEDS: SIMVASTATIN 10 MG PO SCH (19:33)
[2022-05-12] MEDS: Ampicillin 2 GM in Sodium Chloride 0.9% 100 ML IV SCH ×3 (06:38→18:25)
[2022-05-12] MEDS: OMEPRAZOLE 20 MG PO SCH (06:44)
[2022-05-12] MEDS: FISH OIL PO SCH (07:52)
[2022-05-12] MEDS: Apixaban 5 MG Tab **PTOM PO SCH (07:52)
[2022-05-12] MEDS: FATTY ACIDS PO SCH (07:52)
[2022-05-12] MEDS: CRANBERRY PO SCH (07:52)
[2022-05-12] MEDS: OMEGA PO SCH (07:52)
[2022-05-12] MEDS: Metoprolol Succinate 25 MG Tab.ER **PTOM PO SCH (07:53)
[2022-05-12] MEDS: Tamsulosin 0.4 MG Cap.ER **PTOM PO SCH (07:53)
[2022-05-12] MEDS: UBIDECARENONE 100 MG PO SCH (07:54)
[2022-05-12] MEDS: Furosemide 20 MG Tab PO SCH (07:55)
[2022-05-12] MEDS ORDERED: TIMOLOL EYEBOTH SCH (08:30)
[2022-05-12] MEDS ORDERED: BRIMONIDINE TARTRATE EYEBOTH SCH (08:30)
[2022-05-12] MEDS: Timolol Maleate 0.5% Ophth Soln 5 ML Bottle EYEBOTH SCH (19:30)
[2022-05-12] MEDS: Latanoprost 0.005% Ophth Soln 2.5 ML Bottle EYEBOTH SCH (19:35)
[2022-05-12] MEDS: Simvastatin 10 MG Tab PO SCH (19:50)
[2022-05-12] MEDS: Finasteride 5 MG Tab PO SCH (19:50)
[2022-05-12] MEDS: Tamsulosin 0.4 MG Cap.ER PO SCH (19:51)
[2022-05-12] MEDS: Apixaban 5 MG Tab PO SCH (19:51)
[2022-05-12] MEDS: Brimonidine 0.2% Ophth Soln 5 ML Bottle EYEBOTH SCH (19:52)
[2022-05-13] MEDS: Ampicillin 2 GM in Sodium Chloride 0.9% 100 ML IV SCH ×5 (00:55→23:50)
[2022-05-13] MEDS: Pantoprazole 40 MG Tab.CR PO SCH (06:30)
[2022-05-13] MEDS: Metoprolol Succinate 25 MG Tab.ER PO SCH (07:58)
[2022-05-13] MEDS: amLODIPine 10 MG Tab PO SCH (07:58)
[2022-05-13] MEDS: Furosemide 20 MG Tab PO SCH (07:59)
[2022-05-13] MEDS: Apixaban 5 MG Tab PO SCH ×2 (07:59→19:37)
[2022-05-13] MEDS: Tamsulosin 0.4 MG Cap.ER PO SCH ×2 (07:59→19:38)
[2022-05-13] MEDS: FATTY ACIDS PO SCH (08:00)
[2022-05-13] MEDS: CRANBERRY PO SCH (08:00)
[2022-05-13] MEDS: FISH OIL PO SCH (08:00)
[2022-05-13] MEDS: OMEGA PO SCH (08:00)
[2022-05-13] MEDS: UBIDECARENONE 100 MG PO SCH (08:01)
[2022-05-13] MEDS: Brimonidine 0.2% Ophth Soln 5 ML Bottle EYEBOTH SCH ×2 (08:03→19:41)
[2022-05-13] MEDS: Timolol Maleate 0.5% Ophth Soln 5 ML Bottle EYEBOTH SCH ×2 (08:03→19:41)
[2022-05-13] MEDS: Finasteride 5 MG Tab PO SCH (19:38)
[2022-05-13] MEDS: Simvastatin 10 MG Tab PO SCH (19:38)
[2022-05-13] MEDS: Latanoprost 0.005% Ophth Soln 2.5 ML Bottle EYEBOTH SCH (19:39)
[2022-05-14] MEDS: Ampicillin 2 GM in Sodium Chloride 0.9% 100 ML IV SCH ×2 (06:15→11:23)
[2022-05-14] MEDS: Pantoprazole 40 MG Tab.CR PO SCH (06:15)
[2022-05-14] MEDS: Timolol Maleate 0.5% Ophth Soln 5 ML Bottle EYEBOTH SCH (07:45)
[2022-05-14] MEDS: Brimonidine 0.2% Ophth Soln 5 ML Bottle EYEBOTH SCH (07:47)
[2022-05-14] MEDS: Apixaban 5 MG Tab PO SCH (07:48)
[2022-05-14] MEDS: Tamsulosin 0.4 MG Cap.ER PO SCH (07:48)
[2022-05-14] MEDS: Furosemide 20 MG Tab PO SCH (07:48)
[2022-05-14] MEDS: CRANBERRY PO SCH (07:49)
[2022-05-14] MEDS: UBIDECARENONE 100 MG PO SCH (07:49)
[2022-05-14] MEDS: Metoprolol Succinate 25 MG Tab.ER PO SCH (07:50)
[2022-05-14] MEDS: FATTY ACIDS PO SCH (07:50)
[2022-05-14] MEDS: FISH OIL PO SCH (07:50)
[2022-05-14] MEDS: OMEGA PO SCH (07:50)
[2022-05-14] MEDS: amLODIPine 10 MG Tab PO SCH (07:51)
[2022-05-14 13:20] VITALS: BP 128/72; PULSE 66
== END 2022-05-14 15:54 | disposition home or self-care (01) | DRG 309 ==
LOC: CC.ED 09:36 → UNDOADMOB 13:36 → CC.MS 13:36 → UNDOADMOB 13:46 → CC.MS 13:46 → OBSVTOIN 05-12 09:16
PROVIDERS: ADMIT Nurse Practitioner Family; ATTEND Nurse Practitioner Family
DX: R06.00 Dyspnea, unspecified (principal); R06.89 Other abnormalities of breathing; I49.3 Ventricular premature depolarization; R53.1 Weakness; N39.0 Urinary tract infection, site not specified; R00.8 Other abnormalities of heart beat; Z86.718 Personal history of other venous thrombosis and embolism; H40.9 Unspecified glaucoma; H91.90 Unspecified hearing loss, unspecified ear; E78.00 Pure hypercholesterolemia, unspecified; I11.0 Hypertensive heart disease with heart failure; I50.9 Heart failure, unspecified; K21.9 Gastro-esophageal reflux disease without esophagitis; Z20.822 Contact with and (suspected) exposure to COVID-19; R31.0 Gross hematuria; D50.0 Iron deficiency anemia secondary to blood loss (chronic); N40.0 Benign prostatic hyperplasia without lower urinary tract symptoms; Z87.440 Personal history of urinary (tract) infections; Z98.49 Cataract extraction status, unspecified eye; Z85.820 Personal history of malignant melanoma of skin; Z90.49 Acquired absence of other specified parts of digestive tract; Z79.01 Long term (current) use of anticoagulants; Z79.899 Other long term (current) drug therapy; Z86.711 Personal history of pulmonary embolism; Z95.5 Presence of coronary angioplasty implant and graft; D64.9 Anemia, unspecified
CPT/HCPCS: 36415; 71045; 74178; 80053; 81001; 83735; 83880; 85025; 87086; 87088; 87186; 93005; 93306; 96365; 96366; 96376; 99285; A9270-GY; G0378; J0290; Q9967; U0002